=== PATIENT | female | born 1960 | race Caucasian/White ===

== ENCOUNTER → 2016-04-14 | Outpatient (CLI) | payer MEDICARE ==
[~2016-04-14] MED LIST: ADVAIR HFA 115/1 INH INH; ASPIRIN EC325 MG PO; ASPIRIN81 MG PO; LEVOTHYROXINE25 MCG PO; LIPITOR TAB 1010 MG PO; LISINOPRIL2.5 MG PO; LOPRESSOR 25 MG25 MG PO; NITROSTAT 0.40.4 MG SL; PLAVIX 75 MG TA75 MG PO; PROAIR HFA8.5 GM INH; RANEXA500 MG PO; SUDAFED 12-HOU120 MG PO; VITAMIN D50000 UNIT PO; ZOLOFT100 MG PO; ZOLOFT50 MG PO
[2016-04-14 07:31] LABS: HEMOGLOBIN 15.6 gm/dl (12.3-15.3); RED BLOOD COUNT 4.53 M/UL (4.00-5.10); WHITE BLOOD COUNT 9.5 K/UL (4.5-11.0)
[2016-04-14 07:55] LABS: BUN/CREATININE RATIO 11 (0-10)
== END ==
LOC: LAB 06:52
PROVIDERS: Internal Medicine Cardiovascular Disease
DX: I25.10 Atherosclerotic heart disease of native coronary artery without angina pectoris (principal); I10 Essential (primary) hypertension; I20.9 Angina pectoris, unspecified; I47.2 Ventricular tachycardia; I25.5 Ischemic cardiomyopathy; R94.39 Abnormal result of other cardiovascular function study
CPT/HCPCS: 36415; 71020; 80048; 80061; 80076; 84439; 84443; 84481; 85025

== ENCOUNTER → 2016-04-16 | Outpatient (CLI) | payer MEDICARE | END | disposition home or self-care (01) | LOC: CATH 06:55 | DX: I25.119 Atherosclerotic heart disease of native coronary artery with unspecified angina pectoris (principal); R94.39 Abnormal result of other cardiovascular function study; I11.0 Hypertensive heart disease with heart failure; I50.22 Chronic systolic (congestive) heart failure; I25.5 Ischemic cardiomyopathy; I25.2 Old myocardial infarction; Z95.1 Presence of aortocoronary bypass graft; Z95.810 Presence of automatic (implantable) cardiac defibrillator; E78.5 Hyperlipidemia, unspecified; Z88.3 Allergy status to other anti-infective agents; I47.2 Ventricular tachycardia; F17.210 Nicotine dependence, cigarettes, uncomplicated; Z79.82 Long term (current) use of aspirin; Z79.899 Other long term (current) drug therapy; R73.02 Impaired glucose tolerance (oral); J30.9 Allergic rhinitis, unspecified; F41.9 Anxiety disorder, unspecified; F32.9 Major depressive disorder, single episode, unspecified; A69.20 Lyme disease, unspecified; H69.80 Other specified disorders of Eustachian tube, unspecified ear; E03.9 Hypothyroidism, unspecified; M54.5 Low back pain; M54.32 Sciatica, left side; Z86.73 Personal history of transient ischemic attack (TIA), and cerebral infarction without residual deficits; E55.9 Vitamin D deficiency, unspecified | CPT/HCPCS: C1769; J1644; J2250; J3010; J7030; Q0163; Q9963 ==

== ENCOUNTER 2016-05-29 16:57 | Emergency (ER) | payer MEDICARE | END 2016-05-29 17:15 | disposition home or self-care (01) | LOC: ER1 16:57 | DX: L03.113 Cellulitis of right upper limb (principal); J44.9 Chronic obstructive pulmonary disease, unspecified; I51.9 Heart disease, unspecified; F17.210 Nicotine dependence, cigarettes, uncomplicated; Z88.1 Allergy status to other antibiotic agents; Z95.1 Presence of aortocoronary bypass graft; Z79.82 Long term (current) use of aspirin; Z79.02 Long term (current) use of antithrombotics/antiplatelets; Z79.899 Other long term (current) drug therapy | CPT/HCPCS: 96372; 99283 ==

== ENCOUNTER → 2020-05-14 | Outpatient (CLI) | payer MEDICARE, OTHER ==
[~2020-05-14] MED LIST changes: +ADVAIR 250-501 EACH INH; +ASPIRIN CHEWABL81 MG PO; +ATORVASTATIN CA20 MG PO; +BACTRIM 400-801 EACH PO; +BACTROBAN OINT22 GM EXT; +CLARITIN10 M2 PO; +HARD NAILS2500 MCG PO; +IBUPROFEN600 MG PO; +IMDUR ER TAB 3030 MG PO; +KEFLEX CAP 500500 MG PO; +LIPITOR TAB 2020 MG PO; +MYCOSTATIN100000 UTS PO; +OMNICEF 300 MG300 MG PO; +PERCOCET 5/325 T1 EA PO; +PLETAL 100 MG100 MG PO; +PREDNISONE 50 M50 MG PO; +VITAMIN D350 MCG PO; -VITAMIN D50000 UNIT PO; +ZESTRIL2.5 MG PO
== END ==
LOC: EXRD 10:00 → US 10:00
DX: I73.9 Peripheral vascular disease, unspecified (principal); I65.23 Occlusion and stenosis of bilateral carotid arteries; A69.20 Lyme disease, unspecified
CPT/HCPCS: 93880; 93922; 93925; 93979

== ENCOUNTER → 2020-06-05 | Outpatient (CLI) | payer MEDICARE, OTHER ==
[2020-06-05 09:09] LABS: HEMOGLOBIN 15.9 gm/dl (12.3-15.3); RED BLOOD COUNT 4.7 M/UL (4.00-5.10); WHITE BLOOD COUNT 8.1 K/UL (4.5-11.0)
== END ==
LOC: LAB 08:43
PROVIDERS: Family Medicine
DX: I10 Essential (primary) hypertension (principal); E03.9 Hypothyroidism, unspecified; E55.9 Vitamin D deficiency, unspecified
CPT/HCPCS: 36415; 80053; 80061; 84439; 84443; 85027

== ENCOUNTER → 2020-08-08 | Outpatient (CLI) | payer MEDICARE, OTHER | LOC: MAMO 07:57 | DX: Z12.31 Encounter for screening mammogram for malignant neoplasm of breast (principal) | CPT/HCPCS: 77063; 77067 ==

== ENCOUNTER 2020-09-17 17:51 | Emergency (ER) | payer MEDICARE, OTHER | END 2020-09-17 20:45 | disposition left against medical advice (07) | LOC: ER1 17:51 | DX: Z53.21 Procedure and treatment not carried out due to patient leaving prior to being seen by health care provider (principal) ==

== ENCOUNTER → 2021-01-28 | Outpatient (CLI) | payer MEDICARE | LOC: KOH-I 14:30 | DX: J44.9 Chronic obstructive pulmonary disease, unspecified (principal); F17.200 Nicotine dependence, unspecified, uncomplicated; R91.1 Solitary pulmonary nodule | CPT/HCPCS: 71271 ==